=== PATIENT | male | born 1990 | race Caucasian/White ===

== ENCOUNTER 2016-04-27 17:55 | Emergency (ER) ==
[2016-04-27] MEDS ORDERED: XYLOCAINE-MPF 1% INJ ONE (18:47)
--- NOTE | 2016-04-27 18:52 | PROVIDER DOCUMENTATION ---
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 He has had a recent tetanus shot at PCP office. Quality of Pain: reports: burning Severity in ED: mild Onset/Duration: just prior to arrival Timing: still present Modifying Factors: improves with: palpation ([id number]) Any recent injury?: Yes Locality of Occurance: Work Similar Symptoms Previously?: No Recently seen or treated by another doctor?: No - UPPER EXTREMITY PAIN/INJURY Extremities Pain Location: thumb: left Context / Method of Injury: reports: incised Associated Symptoms: reports: denies symptoms Review of Systems - Adult - REVIEW OF SYSTEMS - ADULT Constitutional: reports: no symptoms reported Eyes: reports: no symptoms reported Ears, Nose, Mouth & Throat: reports: no symptoms reported Cardiovascular: reports: no symptoms reported Respiratory: reports: no symptoms reported Gastrointestinal: reports: no symptoms reported Genitourinary: reports: no symptoms reported Musculoskeletal: reports: no symptoms reported Integumentary: reports: see HPI Neurological: reports: no symptoms reported Psychiatric: reports: no symptoms reported Endocrine: reports: no symptoms reported Hematologic/Lymphatic: reports: no symptoms reported Allergic/Immunologic: reports: no symptoms reported All Other Systems: Reviewed and Negative Past History - Adult - PAST MEDICAL HISTORY-ADULT Review of Records: reports: Old Records Reviewed, Nursing Assessment Review, Medications Reviewed, Social history reviewed & non-contributory. Cardiovascular: reports: HTN - PRIOR SURGERIES/PROCEDURES Surgical/Procedure History: reports: none - IMMUNIZATION STATUS Childhood Immunizations: See Nurse Assessment Flu Vaccine: See Nurse Assessment - SOCIAL HISTORY Smoking: greater than 1 pack/day ( 1 ppd) Provider spent 3-5 mins advising pt. on dangers of tobacco.: Discussed manners to quit use, and f/u contacts for add'l counseling. Substance Use: denies Alcohol Use Frequency: never Living Situation: family Physical Exam-Injury Related - Physical Exam-Injury Related Initial Vital Signs Reviewed: Yes General Appearance: appears well, alert, no apparent distress Eyes: PERRL/EOMI, pink conjunctivae Head, Ears, Nose, Mouth & Throat: normocephalic/atraumatic Respiratory: no respiratory distress Cardiovascular: normal peripheral pulses Peripheral Pulses: radial (L): 2+ Extremity: tenderness (left thumb) Integumentary: laceration (to left thumb) Neurologic: grossly normal Psych/Mental Status: normal mood/affect, normal thought content, normal thought process, oriented x 3 - Glascow Coma Score Best Eye Response (Indigo): (4) open spontaneously Best Verbal Response (Indigo): (5) oriented Best Motor Response (Indigo): (6) obeys commands Indigo Total: 15 Progress - PLAN OF CARE/RESULTS Progress/Plan/Lab Results: 1919-Discussed x-ray results/dx/tx/discharge and follow up instructions with patient; he verbalized understanding. Orders Category Date Time Status Suture Tray Set-Up DIRECTED Care 04/27/16 18:47 Active Wound Care DIRECTED Care 04/27/16 19:30 Active FINGER(S)-LEFT [RAD] Stat Exams 04/27/16 18:46 Taken Bacitracin/Polymixin Oint [Polysporin Ointment] Med 04/27/16 19:30 Discontinued See Dose Instructions TOP NOW ONE Lidocaine 1% Pf [Xylocaine-Mpf 1%] Med 04/27/16 18:47 Discontinued See Dose Instructions INJ NOW ONE Vital Signs - 24 hr 04/27/16 18:16 Temperature 98 F Pulse Rate 69 Respiratory 18 Rate Blood Pressure 140/81 O2 Sat by Pulse 98 Oximetry - XRAY 1 XRAY: Left XRAY Study: Hand (thumb) Impression: Normal (no fx) Procedures - LACERATION/WOUND REPAIR/FB Left Finger Wound Location: Other: left thumb Wound's Depth, Shape: superficial Wound Explored/Foreign Body: clean Irrigated with Saline?: Yes Prepped with: Hibiclens Anesthetic: 1%, Lidocaine/Xylocaine Volume of Anesthetic (ml's): 3 Wound Debrided: minimal Wound Repaired with: Sutures Suture Size/Type: 4.0, Nylon Number of Sutures: 4 Layer Closure?: No Sterile Dressing Applied?: Yes Splint Applied?: No Sling Applied?: No Post Procedure Neurovascular Exam: Intact Departure - Departure Time of Disposition Order: 19:30 DIAGNOSIS: Laceration of thumb Qualifiers: Encounter type: initial encounter Laterality: left Qualified Code(s): S61.012A - Laceration without foreign body of left thumb without damage to nail, initial encounter Injury of thumb, left Qualifiers: Encounter type: initial encounter Qualified Code(s): S69.92XA - Unspecified injury of left wrist, hand and finger(s), initial encounter Disposition: HOME 01 Certified Medical Emergency: Emergent Condition: Good Additional Instructions: Return in 10 days for suture removal or follow up with PCP for suture removal in 10 days. Wash with dial antibacterial soap and water. Take medications as prescribed. Keep clean and dry. ED Follow Up Instructions: You have been treated by a care provider in the Emergency Department. These instructions are being provided to you so you can have an understanding of how to care for yourself upon discharge. Upon discharge from the Emergency Department, you are responsible for making arrangements for follow-up care by a physician of your choice. Take all prescribed medications as directed. Return to the Emergency Department immediately for any new or worsening symptoms. You may call the Physician Referral phone number at [phone] to obtain a list of Physicians who are taking new patients. Prescriptions: Cephalexin [Keflex] 500 mg PO BID #20 capsule Referrals: None,PCP [Primary Care Provider] - Barrett Martinez MD [STAFF PHYSICIAN] - Forms: Return to School/Parent Work Instructions: Laceration Care, Adult, Cephalexin tablets or capsules Attestation - Physician/ LANG Attestation Patient care was provided by Advanced Practice Provider:: Yes Advanced Practice Provider:: Savana Gutierrez Advanced Practice Provider documentation review:: The Mid-level provider documentation, treatment plan and medical decision making was reviewed by the physician who agrees with all treatment and medical decision making by the P.
[2016-04-27] MEDS ORDERED: POLYSPORIN OINTMENT TOP ONE (19:30)
[2016-04-27 19:37] VITALS: BP 143/88
--- NOTE | 2016-04-28 08:03 | Diag Imaging Result Document ---
PROCEDURE NAME: FINGER(S)-LEFT - 04/27/2016 LEFT THUMB, THREE VIEWS: FINDINGS: There is an external bandage about the thumb. No foreign body. No fracture. No dislocation. IMPRESSION: No acute bony injury.
== END 2016-04-27 20:10 | disposition home or self-care (01) ==
LOC: P.ED 17:55
DX: S61.012A Laceration without foreign body of left thumb without damage to nail, initial encounter (principal); M79.645 Pain in left finger(s); I10 Essential (primary) hypertension; F17.210 Nicotine dependence, cigarettes, uncomplicated; Z71.6 Tobacco abuse counseling; W45.8XXA Other foreign body or object entering through skin, initial encounter
CPT/HCPCS: 73140; 99283

== ENCOUNTER 2016-05-09 15:05 | Emergency (ER) ==
[2016-05-09 15:17] VITALS: BP 128/81
--- NOTE | 2016-05-09 15:56 | PROVIDER DOCUMENTATION ---
HPI-General Adult - General Chief Complaint: Suture/Staple Removal Stated Complaint: SUTURE/STAPLE REMOVAL Time Seen by Provider: 05/09/16 15:46 Source: patient Allergies/Adverse Reactions: Patient Allergies Allergy/AdvReac Type Severity Reaction Status Date / Time sulfamethoxazole AdvReac HIVES Verified 04/27/16 18:19 [From ] trimethoprim [From ] AdvReac HIVES Verified 04/27/16 18:19 Home Medications: Home Medication List Medication Instructions Recorded Confirmed Last Taken Type Cephalexin [Keflex] 500 mg PO BID #20 capsule 04/27/16 Unknown Rx - History of Present Illness -Gen Adult Nature of Presenting Problems: Pt. is 25 yom that presents with request to remove sutures that have been in place for 12 days. Pt. denies any complaints or issues. Location of Pain/Injury: reports: none. denies: head, face, mouth, neck, chest , upper extremity, hand(s), abdomen, back, pelvis, genitalia, lower extremity, feet, upper body, lower body, generalized Pain Radiation: reports: no radiation Quality of Pain: reports: none. denies: aching, burning, cramping, dull, fullness, indigestion, pressure, sharp, stabbing, tearing, throbbing, tightness Severity: denies: mild, moderate, severe Onset/Duration: reports: abrupt, other (12 days ago) Timing: reports: still present, improving. denies: gone now, resolved prior to arrival, intermittent, constant, changing over time, getting worse Context/Activities at Onset: reports: light activity, recent trauma history. denies: recent emotional stress, recent physical stress, possible bad food, cold exposure, out of country travel Modifying Factors: improves with: nothing Associated Symptoms: reports: denies symptoms. denies: anxiety, arm pain, back/ neck pain, chest pain, constipation, cough, diaphoresis, diarrhea, dizziness, EENT symptoms, fatigue, fever/chills, genitourinary problems, headaches, heartburn, joint pain, loss of appetite, malaise, muscle aches, sinus congestion /drainage, nausea, rash, seizure, shortness of breath, sensory/motor loss, pain with inspiration, swelling/mass in abdomen, syncope, vomiting, weakness, trouble walking Similar Symptoms Previously?: Yes Recently seen or treated by another doctor?: Yes Review of Systems - Adult - REVIEW OF SYSTEMS - ADULT Constitutional: reports: see HPI. denies: chills, fever, fatique Eyes: reports: see HPI. denies: discharge, blurred vision, double vision Ears, Nose, Mouth & Throat: reports: see HPI. denies: ear pain, hearing loss, nose pain, loose teeth, mouth/dental pain, throat pain, throat swelling Cardiovascular: reports: see HPI. denies: chest pain, irregular heart rate, orthopnea, syncope Respiratory: reports: see HPI. denies: chronic cough, cough, dyspnea on exertion, pleurisy, shortness of breath, wheezing Gastrointestinal: reports: see HPI. denies: abdominal pain, hematemesis, difficulty swallowing, nausea, vomiting Genitourinary: reports: see HPI. denies: dysuria, discharge, hematuria, hesitency, urgency Musculoskeletal: reports: see HPI. denies: bone pain, back pain, joint pain, joint swelling, neck pain Integumentary: reports: see HPI, other (Healing laceration). denies: hives, hair loss, mole changes, nail changes, rash, skin thickening Neurological: reports: see HPI. denies: ataxia, dizziness/vertigo, headache/ migraines, numbness, paresthesia, seizure, tremors Psychiatric: reports: see HPI. denies: anxiety, depression, emotional problems , insomnia, panic attacks, suicidal thoughts Past History - Adult - PAST MEDICAL HISTORY-ADULT Review of Records: reports: Old Records Reviewed, Nursing Assessment Review, Medications Reviewed, Social history reviewed & non-contributory. Cardiovascular: reports: HTN - PRIOR SURGERIES/PROCEDURES Surgical/Procedure History: reports: none - IMMUNIZATION STATUS Childhood Immunizations: See Nurse Assessment Flu Vaccine: See Nurse Assessment - FAMILY HISTORY Family History: reviewed, not pertinent - SOCIAL HISTORY Smoking: cigarettes, greater than 1 pack/day Provider spent 3-5 mins advising pt. on dangers of tobacco.: Discussed the need to stop smoking Physical Exam-General - PHYSICAL EXAM-ADULT Initial Vital Signs Reviewed: Yes - CONSTITUTIONAL General Appearance: alert, no apparent distress, thin. negative: anxious, lethargic, slow to respond, obtunded, combative - EYES Eyes: PERRL/EOMI, pink conjunctivae. negative: conjuctival exudate, scleral icterus, subconjunctival hemorrhage - HEAD, EARS, NOSE, MOUTH & THROAT HENMT: normocephalic/atraumatic, moist mucous membranes. negative: angioedema, frontal tenderness, maxillary tenderness - NECK Neck: non-tender, full range of motion, supple, normal inspection. negative: lymphadenopathy, trachial deviation, thyromegaly - RESPIRATORY Respiratory: lungs clear, normal breath sounds. negative: crackles, rales, rhonchi, stridor, wheezing - CARDIOVASCULAR Cardiovascular: normal peripheral pulses, regular rate, rhythm, no edema, no JVD , no murmur. negative: extra beats, friction rub, irregularly irregular - CHEST (BREASTS) Chest/Breast: deferred - GASTROINTESTINAL (ABDOMEN) Abdominal Exam: normal bowel sounds, non tender, soft. negative: distended, guarding, rigid, rebound, tenderness, hernia, mass - GENITOURINARY Male Genitalia: deferred Rectal Exam: deferred Hemoccult Exam: deferred - LYMPHATIC Lymphatic: no adenopathy. negative: axilla node tender, cervical node tenderness - MUSCULOSKELETAL Back Exam: normal inspection, no CVA tenderness, no vertebral tenderness. negative: ecchymosis, swelling, vertebral tenderness Extremity: normal range of motion, non-tender, normal gait, normal inspection. negative: deformity, erythema, inflammation, swelling, tenderness Peripheral Pulses: radial (R): 2+, radial (L): 2+ - SKIN Integumentary: normal color, normal turgor, warm/dry, laceration(s) (Healing laceration to left thumb.). negative: cyanosis, diaphoresis, ecchymosis, erythema, jaundice, pallor, petechiae, purpura, rash, swelling, tenderness - NEUROLOGIC Neurologic: grossly normal, no motor/sensory deficits. negative: aphasia, facial droop, focal weakness, motor weakness, sensory deficit - PSYCHIATRIC Psych/Mental Status: normal mood/affect, normal thought content, normal thought process, oriented x 3. negative: anxious, paranoid, tearful Progress - PLAN OF CARE/RESULTS Progress/Plan/Lab Results: Discussed plan of care with patient. Patient agrees with plan and verbalizes understanding. Vital Signs Temp Pulse Resp BP 05/09/16 15:14 98 F 86 18 128/81 sulfamethoxazole [From ] Adverse Reaction (Verified 04/27/16 18:19) HIVES trimethoprim [From ] Adverse Reaction (Verified 04/27/16 18:19) HIVES Cephalexin [Keflex] 500 mg PO BID #20 capsule 04/27/16 Orders Category Date Time Status Wound Care DIRECTED Care 05/09/16 15:50 Active Departure - Departure Time of Disposition Order: 15:55 DIAGNOSIS: Encounter for removal of sutures Disposition: HOME 01 Certified Medical Emergency: Emergent Condition: Stable Additional Instructions: Follow up with primary care physician Clean wound with antibacterial soap Return to ED for any concerns or worsening of symptoms ED Follow Up Instructions: You have been treated by a care provider in the Emergency Department. These instructions are being provided to you so you can have an understanding of how to care for yourself upon discharge. Upon discharge from the Emergency Department, you are responsible for making arrangements for follow-up care by a physician of your choice. Take all prescribed medications as directed. Return to the Emergency Department immediately for any new or worsening symptoms. You may call the Physician Referral phone number at [phone] to obtain a list of Physicians who are taking new patients. Attestation - Physician/ LANG Attestation Patient care was provided by Advanced Practice Provider:: Yes Advanced Practice Provider:: Ana Lira Advanced Practice Provider documentation review:: The Mid-level provider documentation, treatment plan and medical decision making was reviewed by the physician who agrees with all treatment and medical decision making by the MLP.
== END 2016-05-09 16:07 | disposition home or self-care (01) ==
LOC: P.ED 15:05
DX: S61.012D Laceration without foreign body of left thumb without damage to nail, subsequent encounter (principal); I10 Essential (primary) hypertension; F17.210 Nicotine dependence, cigarettes, uncomplicated; Z71.6 Tobacco abuse counseling
CPT/HCPCS: 99282